=== PATIENT | female | born 1985 | race Two or more races ===

== ENCOUNTER 2020-05-10 14:41 | Emergency (ER) | payer MEDICAID ==
[~2020-05-10] VITALS: Ht 160 cm; Wt 60.0 kg
[2020-05-10 14:50] VITALS: BP 142/97
[2020-05-10] MEDS ORDERED: PREDNISONE 20MG TABLET PO ONE (16:30)
== END 2020-05-10 16:34 | disposition home or self-care (01) ==
LOC: ER 15:01
DX: T65.811A Toxic effect of latex, accidental (unintentional), initial encounter (principal); Y92.89 Other specified places as the place of occurrence of the external cause; I10 Essential (primary) hypertension
CPT/HCPCS: 99283; J7512